=== PATIENT | male | born 1970 | race Caucasian/White ===

== ENCOUNTER 2016-09-26 17:41 | Emergency (ER) | payer BC ==
[~2016-09-26] VITALS: Ht 185.4 cm; Wt 130.0 kg
[~2016-09-26 17:41] MED LIST: COLE1TAB2 PO; GABA300 PO; LOSA25TA31 PO; METH750T2 PO; OMPR20CCR PO; PERC7.5T13 PO; RANI150C PO; ROPI0.5T PO; WELL150T PO
[2016-09-26 17:50] VITALS: BP 145/83; PULSE 96; RESP 20; TEMP 99; O2SAT 100
[2016-09-26] MEDS ORDERED: SODIUM CHLOR 0.9% 1000 ML INJ 1,000 ML IV SCH (18:03)
[2016-09-26 18:09] VITALS: RESP 16; O2SAT 99
[2016-09-26] MEDS ORDERED: MORPHINE SULFATE 8 MG/ML INJ IV PUSH ONE (18:15)
[2016-09-26 18:16] VITALS: BP 140/89; PULSE 84; RESP 16; O2SAT 99
[2016-09-26] MEDS ORDERED: OMEP40CA2 PO (18:21)
[2016-09-26] MEDS ORDERED: OXYB5TAB10 PO (18:21)
[2016-09-26] MEDS ORDERED: FLUO5OIL TOP (18:21)
[2016-09-26] MEDS ORDERED: ONDA1TAB17 PO (18:21)
[2016-09-26] MEDS ORDERED: RANI300C PO (18:21)
[2016-09-26] MEDS ORDERED: LOSA50TA PO (18:21)
[2016-09-26] MEDS ORDERED: SERT-132 PO (18:21)
[2016-09-26] MEDS ORDERED: SYMB160A INH (18:21)
[2016-09-26] MEDS ORDERED: ASPI81TA81 PO (18:21)
--- NOTE | 2016-09-26 18:44 | RADHPO ---
EXAM DATE/TIME: 09/26/2016 18:23 [facility] COMPARISON: CT BRAIN W/O CONTRAST, November 22, 2012, 12:26. INDICATIONS : Fall today with trauma to head. RADIATION DOSE: 69.01 CTDIvol (mGy) MEDICAL HISTORY : Myocardial infarction. Hypertension. SURGICAL HISTORY : reconstructive nose surgery ENCOUNTER: Initial ACUITY: 1 day PAIN SCALE: 5/10 LOCATION: Bilateral head TECHNIQUE: Multiple contiguous axial images were obtained of the head. Using automated exposure control and adj ustment of the mA and/or kV according to patient size, radiation dose was kept as low as reasonably a chievable to obtain optimal diagnostic quality images. FINDINGS: CEREBRUM: The ventricles are normal for age. No evidence of midline shift, mass lesion, hemorrhage or acute in farction. No extra-axial fluid collections are seen. POSTERIOR FOSSA: The cerebellum and brainstem are intact. The 4th ventricle is midline. The cerebellopontine angle i s unremarkable. EXTRACRANIAL: The visualized portion of the orbits is intact. Mucous retention cyst is noted within the right maxil lisa sinus. SKULL: The calvaria is intact. No evidence of skull fracture. CONCLUSION: 1. No acute intracranial abnormality. 2. Mucous retention cyst within the right maxillary sinus. Valdez Umanzor MD on September 26, 2016 at 18:41 Board Certified Radiologist. This report was verified electronically.
--- NOTE | 2016-09-26 18:55 | RADHPO ---
EXAM DATE/TIME: 09/26/2016 18:23 [facility] COMPARISON: No previous studies available for comparison. INDICATIONS : Fall today with trauma to head. RADIATION DOSE: 37.23 CTDIvol (mGy) MEDICAL HISTORY : Hypertension. Myocardial infarction. SURGICAL HISTORY : None. ENCOUNTER: Initial ACUITY: 1 day PAIN SCALE: 5/10 LOCATION: Bilateral neck TECHNIQUE: Volumetric scanning of the cervical spine was performed. Multiplanar reconstructions in the sagittal, coronal and oblique axial planes were performed. Using automated exposure control and adjustment o f the mA and/or kV according to patient size, radiation dose was kept as low as reasonably achievable to obtain optimal diagnostic quality images. FINDINGS: Cervical spine alignment is satisfactory. Is no evidence of cervical spine fracture. No bony canal st enosis is noted. There are degenerative changes with endplate and uncovertebral ossific spurring most notably at C4-5 and C6-7. At C6-7, mild lateral recess stenosis is present on the left. Less severe changes at other levels. There is no evidence of paraspinal hematoma. CONCLUSION: No acute bony injury in the cervical spine Campbell Rob MD on September 26, 2016 at 18:51 Board Certified Radiologist. This report was verified electronically.
[2016-09-26 19:05] VITALS: BP 150/78; PULSE 85; RESP 17; O2SAT 98
[2016-09-26] MEDS ORDERED: TETANUS/DIPHTHERIA TOXOID ADULT 0.5 ML VIAL IM ONE (19:15)
[2016-09-26] MEDS ORDERED: HYDROmorphone HCL PF 1 MG/ML VIAL IV PUSH ONE ×2 (19:15→19:45)
--- NOTE | 2016-09-26 19:21 | RADHPO ---
EXAM DATE/TIME: 09/26/2016 18:15 [facility] COMPARISON: No previous studies available for comparison. INDICATIONS : Fell from trailer, pain, laceration lower leg MEDICAL HISTORY : None. SURGICAL HISTORY : None. ENCOUNTER: Initial ACUITY: 1 day PAIN SCORE: 10/10 LOCATION: Right lower leg FINDINGS: Two view examination of the right tibia demonstrates no evidence of fracture or dislocation. Bony mi neralization is normal. The soft tissue structures are intact. CONCLUSION: Unremarkable examination of the right tibia. Campbell Rob MD on September 26, 2016 at 19:19 Board Certified Radiologist. This report was verified electronically.
[2016-09-26] MEDS: SODIUM CHLORIDE 0.9% FLUSH 5 ML FLUSH IVF PRN ×2 (19:22→20:03)
--- NOTE | 2016-09-26 19:24 | RADHPO ---
EXAM DATE/TIME: 09/26/2016 18:42 [facility] COMPARISON: No previous studies available for comparison. INDICATIONS : Fell from trailer, has pain, limited ROM MEDICAL HISTORY : None. SURGICAL HISTORY : None. ENCOUNTER: Initial ACUITY: 1 day PAIN SCORE: 10/10 LOCATION: Right Shoulder FINDINGS: Two view examination of the right shoulder demonstrates no evidence of fracture or dislocation. The glenohumeral and acromioclavicular joints are maintained. Bony mineralization is normal. CONCLUSION: Unremarkable limited examination of the right shoulder. Campbell Rob MD on September 26, 2016 at 19:22 Board Certified Radiologist. This report was verified electronically.
[2016-09-26] MEDS ORDERED: LIDOCAINE HCL 1% 50 ML VIAL INFIL ONE (19:45)
[2016-09-26 20:10] VITALS: BP 155/80; PULSE 82; RESP 18; O2SAT 98
--- NOTE | 2016-09-26 20:29 | PD ---
HPI Chief Complaint: Fall Time Seen by Provider: 17:58 Travel History International Travel<30 days: No Contact w/Intl Traveler<30days: No Traveled to known affect area: No History of Present Illness HPI Patient is a 45-year-old male who was unloading a floorstanding toolbox from a trailer when the toolbox on the ericka started rolling away from him pulling him down to the ground on his right side. Patient states he thinks he impacted his head and is unsure of any loss of consciousness. On arrival he complains of a laceration over his right tib-fib as well as right shoulder pain. Patient states the pain is excruciating and he's been unable to range his shoulder since. He doesn't state that he stayed to help them finish the job they were doing on scene. Patient denies any headaches at this time denies any focal weakness. Denies any pain in his chest abdomen or pelvis. This incident happened approximately an hour prior to presentation. He has not tried any interventions prior to arrival. PFSH Past Medical History Asthma: Yes ( CHILD) Anxiety: Yes Depression: Yes Cardiac Catheterization: Yes (NO STENTS) Cardiovascular Problems: Yes Chest Pain: Yes Diabetes: No Diminished Hearing: No Endocrine: No GERD: Yes Genitourinary: No Hypertension: Yes Implanted Vascular Access Dvce: No Neurologic: No Psychiatric: Yes Reproductive: No Immunizations Current: Yes Myocardial Infarction: Yes (2008) Ulcer: Yes (HISTORY OF BLEEDING) Tetanus Vaccination: Unknown Influenza Vaccination: Yes Past Surgical History Cholecystectomy: Yes Other Surgery: Yes (RECONSTRUCTIVE SURGERY TO NOSE hemorrhoids) Family History Family Myocardial Infarction: Yes (grandmother and paternal uncle) Social History Alcohol Use: Yes Tobacco Use: No Substance Use: No Allergies-Medications (Allergen,Severity, Reaction): Coded Allergies: No Known Allergies (Verified , 09/26/16) Reported Meds & Prescriptions Reported Meds & Active Scripts Active Flexeril (Cyclobenzaprine HCl) 10 Mg Tab 10 Mg PO TID Percocet (Oxycodone-Acetaminophen) 10-325 mg Tab 1 Tab PO Q6H PRN Reported Ditropan (Oxybutynin Chloride) 5 Mg Tab 10 Mg PO HS Aspir-81 (Aspirin) 81 Mg Tabdr 1 Tab PO DAILY Omeprazole 40 Mg Cap 40 Mg PO HS Fluocinolone Body Topical (Fluocinolone Topical) 0.01 % Oil 1 Applic TOP DIRECTED Ranitidine (Ranitidine HCl) 300 Mg Cap 300 Mg PO DAILY Ondansetron (Ondansetron HCl) 8 Mg Tab 8 Mg PO DIRECTED Symbicort Inh (Budesonide/Formoterol Fumarate) 160-4.5 Mcg/Act Aero 2 Puff INH Q12HR Sertraline (Sertraline HCl) 50 Mg Tab 100 Mg PO DAILY Losartan (Losartan Potassium) 50 Mg Tab 50 Mg PO BID Review of Systems Except as stated in HPI: all other systems reviewed are Neg Physical Exam Narrative GENERAL: Well-developed well-nourished, overweight appears in some moderate pain without any distress. ABCDs are intact. SKIN: Warm and dry. There is a 3 cm linear laceration over the right anterior tibia. Minimal bleeding. There is also a small bruise and abrasion to the proximal right humerus. Otherwise no bruising or wounds are seen on the rest of his skin examination. HEAD: Atraumatic. Normocephalic. No porter signs or raccoons eyes. EYES: Pupils equal and round. No scleral icterus. No injection or drainage. ENT: No nasal bleeding or discharge. Mucous membranes pink and moist. NECK: Trachea midline. No JVD. CARDIOVASCULAR: Regular rate and rhythm. No murmur appreciated. RESPIRATORY: No accessory muscle use. Clear to auscultation. Breath sounds equal bilaterally. GASTROINTESTINAL: Abdomen soft, non-tender, nondistended. Hepatic and splenic margins not palpable. MUSCULOSKELETAL: No CT L or S spine tenderness. Pelvis stable. Left upper extremity including shoulder elbow wrist and hand are atraumatic and has pulses motor and sensory intact normal range of motion. Right upper extremity is tender to palpation at the proximal humerus over the shoulder there is a small abrasion and bruise has described above. Range of motion is intact though extremely limited by pain in abduction of the right shoulder. Elbow is minimally tender over the olecranon process. Full range of motion is demonstrated the elbow which is minimally tender to palpation. Wrist and hand are normal. Pulses motor and sensory are intact distally. Compartments are soft Left lower extremity hip knee ankle and foot are atraumatic and full nontender range of motion. Pulses motor and sensory intact distally compartments are soft. Right lower extremity hip knee ankle and foot are atraumatic and full nontender range of motion. Pulses motor and sensory are intact distally in compartments are soft. There is a laceration as described above. NEUROLOGICAL: Awake and alert. No obvious cranial nerve deficits. Motor grossly within normal limits. Normal speech. PSYCHIATRIC: Appropriate mood and affect; insight and judgment normal. Data Data Last Documented VS Vital Signs Date Time Temp Pulse Resp B/P Pulse Ox O2 Delivery O2 Flow Rate FiO2 09/26/16 21:07 82 18 160/81 97 09/26/16 20:10 Room Air 09/26/16 17:[address] Brain W/O Iv Contrast(Rout) (09/26/16 ) Ct Cerv Spine W/O Contrast (09/26/16 ) Apply Cervical Collar (09/26/16 18:03) Tibia/Fibula (Ap/Lat) (09/26/16 ) Iv Access Insert/Monitor (09/26/16 18:03) Ecg Monitoring (09/26/16 18:03) Oximetry (09/26/16 18:03) Sodium Chlor 0.9% 1000 Ml Inj (Ns 1000 M (09/26/16 18:03) Sodium Chloride 0.9% Flush (Ns Flush) (09/26/16 18:15) Morphine Inj (Morphine Inj) (09/26/16 18:15) Shoulder, Limited(2vws) (09/26/16 ) Hydromorphone Pf Inj (Dilaudid Pf Inj) (09/26/16 19:15) Tetanus/Diphtheria Tox Adult (Tetanus/Di (09/26/16 19:15) Lidocaine 1% Inj (50 Ml) (Xylocaine 1% I (09/26/16 19:45) Hydromorphone Pf Inj (Dilaudid Pf Inj) (09/26/16 19:45) Humerus (Min 2vws) (09/26/16 20:10) Elbow, Limited (Ap&Lat) (09/26/16 20:10) ^ Sling (09/26/16 20:35) MDM Medical Decision Making Medical Screen Exam Complete: Yes Emergency Medical Condition: Yes Differential Diagnosis Closed head injury, right shoulder fracture, right humerus fracture, right elbow fracture, cervical fracture seems unlikely though not excludable by nexus , laceration, abrasion. Narrative Course Patient was roomed in the emergency department, initial evaluation showed tenderness at the shoulder. Patient was placed in a cervical collar as he has a distracting injury. CT head and C-spine are negative the patient's c-collar was removed. His shoulder x-ray initially is negative however he is requiring a fair amount of pain medicine to control his pain. He has a history of Percocet use for degenerative disc disease at home but has not used this in some time. He is sent back to the x-ray room for x-rays of his humerus as well as his elbow which are negative. Patient does appear much more comfortable after several rounds of pain medication. I discussed with him likely this is a partial tear of his rotator cuff. I discussed with him symptomatic management home and early range of motion exercises. He will be provided a sling for comfort but I reemphasized that he needs to have early range of motion as part of his therapy. He will follow-up with his primary care provider and I recommended that he do so soon as possible for possible need of an MRI of her shoulder in the near future. He is stable For discharge at this time. Procedures Procedure Narrative LACERATION LOCATION: Right kaur LENGTH: 3 cm NUMBER OF STITCHES/MARTHA: 6 REPAIR: The area of the laceration was sterilely draped. The laceration was infiltrated with 1% lidocaine to total of 6 cc.. The wound was copiously irrigated and explored without evidence of foreign body, tendon injury or neurovascular injury. The wound was closed using 4-0 simple interrupted Prolene stitches. This was a single layer repair. A sterile dressing was applied. The patient was advised to keep the dressing clean and dry. Patient tolerated the procedure well. Diagnosis Primary Impression: Closed head injury Qualified Code: S09.90XA - Closed head injury, initial encounter Additional Impression: Right shoulder injury Qualified Code: S49.91XA - Right shoulder injury, initial encounter Additional Instructions: Sling is for comfort only, recommend out of sling as soon as possible. Recommend multiple times per day range of motion exercises as described. Follow -up with your primary care provider in one week. Scripts Cyclobenzaprine (Flexeril)10 Mg Tab10 Mg PO TID #30 TAB Ref 0 Prov:Valdez Ortiz MD 09/26/16 Oxycodone-Acetaminophen (Percocet)10-325 mg Tab1 Tab PO Q6H PRN (PAIN) #15 TAB Ref 0 Prov:Valdez Ortiz MD 09/26/16 Disposition: 01 DISCHARGE HOME Condition: Stable Valdez Ortiz MD Sep 26, 2016 20:29
--- NOTE | 2016-09-26 20:34 | RADHPO ---
EXAM DATE/TIME: 09/26/2016 20:15 [facility] COMPARISON: HUMERUS RIGHT (MIN 2VWS), September 26, 2016, 20:12. INDICATIONS : Patient has right elbow pain post fall from trailer. MEDICAL HISTORY : None. SURGICAL HISTORY : None. ENCOUNTER: Initial ACUITY: 1 day PAIN SCORE: 10/10 LOCATION: Right elbow. FINDINGS: Two view examination of the right elbow demonstrates no soft tissue swelling, joint effusion, fractur e or dislocation. Bony mineralization is normal. CONCLUSION: No acute disease. Valdez Umanzor MD on September 26, 2016 at 20:32 Board Certified Radiologist. This report was verified electronically.
--- NOTE | 2016-09-26 20:35 | RADHPO ---
EXAM DATE/TIME: 09/26/2016 20:12 [facility] COMPARISON: No previous studies available for comparison. INDICATIONS : Patient has right humerus pain post fall from trailer. MEDICAL HISTORY : None. SURGICAL HISTORY : None. ENCOUNTER: Initial ACUITY: 1 day PAIN SCORE: 10/10 LOCATION: Right humerus. FINDINGS: Two view examination of the right humerus demonstrates no evidence of fracture or dislocation. Bony mineralization is normal. The soft tissue structures are intact. CONCLUSION: No acute disease. Valdez Umanzor MD on September 26, 2016 at 20:33 Board Certified Radiologist. This report was verified electronically.
[2016-09-26] MEDS ORDERED: PERC10TA27 PO (20:38)
[2016-09-26] MEDS ORDERED: CYCL1TAB29 PO (20:38)
[2016-09-26 21:07] VITALS: BP 160/81
== END 2016-09-26 21:19 | disposition home or self-care (01) ==
LOC: PHED 17:41
DX: S47.1XXA Crushing injury of right shoulder and upper arm, initial encounter (principal); S81.811A Laceration without foreign body, right lower leg, initial encounter; Z23 Encounter for immunization; W31.89XA Contact with other specified machinery, initial encounter; Y93.9 Activity, unspecified; Y92.9 Unspecified place or not applicable; Y99.9 Unspecified external cause status
CPT/HCPCS: 12002; 70450; 72125; 73030; 73060; 73070; 73590; 90471; 90714; 96361; 96374; 96375; 96376; 99284; J1170; J2270; J7030

== ENCOUNTER → 2016-12-02 | Day surgery (SDC) | payer BC ==
[~2016-12-02] MED LIST changes: +APREPITANT 40 MG CAP ONE; +ASPI81TA81 PO; +BUPIVACAINE HCL PF 0.75% 30 ML VIAL ONE; -COLE1TAB2 PO; +CYCL1TAB29 PO; +FLUO5OIL TOP; -GABA300 PO; +LACTATED RINGER'S 1,000 ML BAG IV ONE; +LACTATED RINGER'S 1000 ML INJ 1,000 ML ONE; +LIDOCAINE 1.5%/EPINEPHrine 1:200,000 PF SOLN 30 ML AMP ONE; -LOSA25TA31 PO; +LOSA50TA PO; +MEPERIDINE HCL 25 MG/ML VIAL ONE; -METH750T2 PO; +MIDAZOLAM HCL 5 MG/ML VIAL (1 ML) ONE; +OMEP40CA2 PO; -OMPR20CCR PO; +ONDA1TAB17 PO; +ONDANSETRON HCL 4 MG/2 ML VIAL IV PUSH ONE; +ONDANSETRON HCL 4 MG/2 ML VIAL ONE; +OXYB5TAB10 PO; +PERC10TA27 PO; -PERC7.5T13 PO; +PROPOFOL 200 MG/20 ML AMP IV ONE; -RANI150C PO; +RANI300C PO; -ROPI0.5T PO; +SERT-132 PO; +SYMB160A INH; -WELL150T PO; +ceFAZolin INJ 1,000 MG VIAL ONE
--- NOTE | 2016-12-03 17:15 | TN ---
cc: NORMA COLORADO MD DATE OF SURGERY: 12/02/2016 PREOPERATIVE DIAGNOSIS 1. Right shoulder impingement syndrome 2. AC joint arthritis 3. Right elbow rupture distal biceps tendon. POSTOPERATIVE DIAGNOSIS 1. Right shoulder wound torn rotator cuff 2. Impingement syndrome 3. AC joint arthritis 4. right elbow rupture distal biceps tendon. PROCEDURE 1.Right shoulder - repair torn rotator cuff with subacromial decompression and excision of the distal clavicle 2. Right elbow - repair distal biceps tendon rupture. PROCEDURE IN DETAIL Informed consent is obtained. The patient was taken to the operating room and placed supine on the operating room table and administered general anesthesia by Dr. Gale of Anesthesia Department. The patient be given gram of Ancef prior to initiation operative procedure. He was then placed in the Beach chair position. The upper extremity was prepped from the shoulder to the fingers. The shoulder was draped with sterile towels. The patient had split sheets, sterile stockinette applied over the hand and forearm. This was wrapped with Coban. At that time a time-out was held and confirmed. The patient was given a second gram of Ancef. At that time a marking pen was utilized to map out the proposed skin incision. Skin and subcutaneous tissue was divided beginning just proximal to the AC joint carried over the anterolateral aspect of the patient's shoulder. The skin and subcutaneous tissue was divided, bleeders were correct. Utilizing Bovie. The periosteum over the AC joint was divided and utilizing oscillating saw an osteotomy was made through the distal portion of clavicle approximately one-quarter inch proximal to the AC joint. The distal clavicle was removed in several pieces. There was noted be a large inferior spur present. The rotator cuff was inspected and a rotator cuff tear was identified and carried through full-thickness in the supraspinatus. Utilizing the saw an anterior acromioplasty was performed. This was completed with rongeurs and a rasp. The rotator cuff tear was identified utilizing the Arthrex rotator cuff systems, using the scorpion grasper two number two fiber wires were placed through the rotator cuff. These were brought to a swivel lock anchor and this was fixed in the proximal humerus. At that time the deltoid was repaired to the acromion and with #2 Tycron followed by #1 Vicryl sutures, 2-0 Vicryl. Utilizing the deep subcutaneous tissue and 3-0 plain and 4-0 nylon stitches were utilized on the skin. The patient had tattoo's present over the shoulder region. These were matched up with the subcutaneous tissue and the skin. Next a second anterior incision was made over the anterior medial aspect of the patient's arm and the skin and subcutaneous tissue was divided and bleeders were coagulated using a Bovie. The patiient had a rupture of the biceps tendon distally palpation along this also demonstrated very clearly was loose, however I could not feel the stump of the biceps tendon. Careful dissection was then taken down and the attachment of the biceps on the radial tuberosity. The bicipital tuberosity of the radius was palpated. There was no tendon attached in that area. The biceps were freed and #2 Tycron suture was used to perform a whip type stitch and at that time the posterior incision (third incision) was made along the subcutaneous border of the ulna. The muscle was peeled back sub periosteally across the interosseous membrane to the radius and a radial tuberosity was identified. Utilizing a 3.2 drill bit, two holes were made. These were then connected utilizing a rip. The forearm was then pronated and two drill holes were placed. The suture with the tendon attached was brought through the interosseous region. The two sutures were passed through the bone in the proximal radius. At that time the soft tissues anterior aspect of the patient's elbow were closed with 2-0 Vicryl, 3-0 plain and 4-0 nylon stitches, interrupted simple and horizontal mattress and Allgower type stitches. The biceps was then tied down over the radius and this wound was closed with a similar fashion the skin was closed with 4-0 nylon interrupted stitches. Steri-Strips, 4x4s, soft-Roll and a long-arm fiberglass splint were applied and the Xeroform, 4x4s, ABD and silk tape were applied to the patient's shoulder, this was then placed in a sling. The patient tolerated the procedure well and was then taken to the recovery room in stable condition. At the completion of the procedure the sponge count, instrument count, and needle counts were correct. Estimated blood loss was 200 cc. MD JORGE Parrish/nancie /4:35 PM /5:01 PM YAQUELIN
== END | disposition home or self-care (01) ==
LOC: ESDC 11:11
PROVIDERS: ATTEND Orthopaedic Surgery
DX: M75.121 Complete rotator cuff tear or rupture of right shoulder, not specified as traumatic (principal); M75.41 Impingement syndrome of right shoulder; M19.011 Primary osteoarthritis, right shoulder; S46.211A Strain of muscle, fascia and tendon of other parts of biceps, right arm, initial encounter
CPT/HCPCS: 00450; 01630; 01710; 01991; 23120; 23420; 24341; 64417; C1713; J0690; J2175; J2250; J2405; J7120; J8501